=== PATIENT | female | born 1975 | race Caucasian/White ===

== ENCOUNTER 2017-11-08 08:46 | Day surgery (SDC) | payer BC ==
[2017-10-31 10:07] LABS: HEMATOCRIT 46.2 % (36.0-47.0); HEMOGLOBIN 16.3 g/dL (12.0-15.5); MEAN CORPUSCULAR HEMOGLOBIN 33.2 pg (27.0-33.4); MEAN CORPUSCULAR HGB CONC 35.2 g/dL (32.0-36.0); MEAN CORPUSCULAR VOLUME 95 fl (80-97); PLATELET COUNT 232 10^3/uL (150-450); RED BLOOD COUNT 4.89 10^6/uL (3.72-5.28); RED CELL DISTRIBUTION WIDTH 13.5 % (11.5-14.0)
[~2017-11-08 08:46] MED LIST: ACETAMINOPHEN 325 MG TABLET PO PRN; LACTATED RINGERS 1000 ML IV PRN; PROPOFOL INJ 200 MG/20 ML VIAL IV ONE; RINGERS SOLUTION,LACTATED 1,000 ML IV PRN
[2017-11-08] MEDS ORDERED: MEPERIDINE HCL/PF INJ 25 MG/1 ML DISP.SYRIN IV PRN (09:38)
[2017-11-08] MEDS ORDERED: PROMETHAZINE HCL INJ 25 MG/1 ML VIAL IV PRN ×2 (09:38)
[2017-11-08] MEDS ORDERED: ONDANSETRON HCL INJ/PF 4 MG/2 ML SDV IV PRN (09:38)
[2017-11-08] MEDS ORDERED: DIPHENHYDRAMINE HCL 50 MG/ML VIAL IV PRN (09:38)
[2017-11-08] MEDS ORDERED: FENTANYL CITRATE INJ/PF 100 MCG/2 ML AMPUL IV PRN ×3 (09:38)
--- NOTE | 2017-11-08 10:22 | Operative Report ---
Nonrecallable Operative Report DATE OF SURGERY: 11/08/17 PREOPERATIVE DIAGNOSIS: Elevated CEA POSTOPERATIVE DIAGNOSIS: 1 same as above. 2. Diverticulosis. 3. Colon polyps. OPERATION: 1. Colonoscopy to the cecum. 2. Hot biopsy of multiple small colon polyps. SURGEON: BRUCE ACEVES ANESTHESIA: LMAC TISSUE REMOVED OR ALTERED: 1. Colon polyp at 50 cm. 2. Colon polyp at 35 cm. 3. Colon polyp at 15 cm. COMPLICATIONS: None apparent. ESTIMATED BLOOD LOSS: Minimal PROCEDURE: Drains/implants: None. Procedure in detail: After informed consent was obtained, the patient was brought to the operating room and laid in the left lateral decubitus position. The endoscope was passed up the rectum, sigmoid colon, descending colon, across the transverse colon, down the ascending colon, and into the cecum. The ileocecal valve and appendiceal orifice were identified. The scope was then withdrawn circumferentially noting the mucosa. The prep was good. The scope was pulled back past the ascending colon, transverse colon, into the descending colon. At approximately 50 cm a small diminutive polyp was identified. It was removed in its entirety via hot biopsy forcep. The scope was pulled down the remainder of the descending colon into the sigmoid colon. There are scattered diverticulosis identified throughout. There are no signs of active diverticulitis. In the sigmoid colon, at approximately 35 cm, another small polyp was identified and removed via hot biopsy forceps. The scope was pulled down into the rectum. At approximately 15 cm another small polyp was removed via hot biopsy forcep. The scope was withdrawn into the rectum, and a retroflexion maneuver was performed. No internal hemorrhoids could be identified. The scope was straightened, air was suctioned from the rectum, the scope was removed, and the procedure was concluded. All sponge, instrument needle counts were correct. Condition: Stable.
--- NOTE | 2017-11-08 10:23 | Discharge Summary ---
Discharge Summary (SDC) - Discharge Final Diagnosis: Elevated CEA, colon polyps, diverticulosis. Date of Surgery: 11/08/17 Discharge Date: 11/08/17 Condition: Stable Referrals: [facility] [Primary Care Provider] - Discharge Diet: As Tolerated Respiratory Treatments at Home: Deep Breathing/Coughing, Incentive Spirometer Discharge Activity: Activity As Tolerated Home Care Assistance: None Needed Report the Following to Your Physician Immediately: Shortness of Breath, Nausea , Vomiting, Increase in Pain, Fever over 101 Degrees, Unusual Bleeding, Redness
[2017-11-08 11:08] VITALS: BP 135/75
== END 2017-11-08 11:09 | disposition home or self-care (01) ==
LOC: OROUT 08:46
PROVIDERS: ATTEND Surgery
DX: K57.30 Diverticulosis of large intestine without perforation or abscess without bleeding (principal); D12.6 Benign neoplasm of colon, unspecified; R97.0 Elevated carcinoembryonic antigen [CEA]; E11.9 Type 2 diabetes mellitus without complications; F17.210 Nicotine dependence, cigarettes, uncomplicated; E66.9 Obesity, unspecified; Z79.84 Long term (current) use of oral hypoglycemic drugs; Z68.35 Body mass index [BMI] 35.0-35.9, adult
CPT/HCPCS: 45384; 36415; 82962; 85027; 88305 ×2; J2704; 811

== ENCOUNTER → 2017-11-14 | Outpatient (CLI) | payer BC ==
--- NOTE | 2017-11-14 12:31 | RADIOLOGY REPORT (SQ) ---
EXAM DESCRIPTION: VENOUS UNILATERAL LOWER COMPLETED DATE/TIME: 11/14/2017 11:53 am REASON FOR STUDY: EDEMA R60.9 EDEMA, UNSPECIFIED COMPARISON: None. TECHNIQUE: Dynamic and static perry scale and color images acquired of the right leg venous system. S elected spectral images acquired with additional compression and augmentation maneuvers. The contrala teral common femoral vein and saphenofemoral junction were also imaged. Images stored on PACS. LIMITATIONS: None. FINDINGS: COMMON FEMORAL: Normal phasicity, compression and augmentation. No visualized echogenic ma terial on perry scale. No defects on color images. FEMORAL: Normal compression and augmentation. No visualized echogenic material on perry scale. No defe cts on color images. POPLITEAL: Normal compression, augmentation. No visualized echogenic material on perry scale. No defec ts on color images. CALF VESSELS: Normal compression, augmentation. No visualized echogenic material on perry scale. No de fects on color images. GSV and SSV: Normal compression, augmentation. No visualized echogenic material on perry scale. No def ects on color images. ANY DEEP VENOUS INSUFFICIENCY: Not evaluated. ANY EVIDENCE OF POPLITEAL CYST: No. OTHER: No other significant finding. CONTRALATERAL COMMON FEMORAL VEIN AND SAPHENOFEMORAL JUNCTION: Normal phasicity, compression and augmentation. No visualized echogenic material on perry scale. No de fects on color images. IMPRESSION: NO EVIDENCE DVT OR SVT IN THE RIGHT LEG. TECHNICAL DOCUMENTATION: JOB ID: [id number] [employer]- All Rights Reserved Reading location - IP/workstation name: [email or web address]
== END ==
LOC: SP 08:44
PROVIDERS: ATTEND Registered Nurse
DX: R60.9 Edema, unspecified (principal)
CPT/HCPCS: 93971